=== PATIENT | male | born 1955 | race African-American/Black ===

== ENCOUNTER 2021-10-20 10:13 | Emergency (ER) | payer BC ==
[~2021-10-20] VITALS: Ht 180.3 cm; Wt 112.9 kg
[2021-10-20] MEDS ORDERED: APIX2.5T PO (10:24)
[2021-10-20] MEDS ORDERED: KETOROLAC TROMETHAMINE 30 MG INJ IM ONE (10:45)
[2021-10-20] MEDS ORDERED: NAPR-1009 PO (11:14)
[2021-10-20] MEDS ORDERED: KETOROLAC TROMETHAMINE 30 MG INJ ONE (11:14)
--- NOTE | 2021-10-20 11:23 | NUR ---
Gave pt RX and d/c instructions, pt verbalized understanding.
== END 2021-10-20 11:28 | disposition home or self-care (01) ==
LOC: ER 10:13
DX: M25.562 Pain in left knee (principal); R60.0 Localized edema; G62.9 Polyneuropathy, unspecified; Z79.01 Long term (current) use of anticoagulants; Z87.81 Personal history of (healed) traumatic fracture
CPT/HCPCS: 73564; 96372; 99283; J1885; A4663